=== PATIENT | male | born 2000 | race Caucasian/White ===

== ENCOUNTER 2022-10-19 01:15 | Inpatient (IN) | payer BC, SELFPAY ==
[2022-10-19 01:17] VITALS: BP 137/83; PULSE 85; RESP 18; TEMP 36.8; O2SAT 96; BMI 29.3
[2022-10-19 01:36] LABS: Appearance Urine Clear; Color Urine Yellow; Glucose Urine UA Negative (Negative); Leukocyte Esterase Urine Negative (Negative); Nitrite Urine Negative (Negative); Urine Blood Negative (Negative); Urine Ketones Trace mg/dL (Negative); Urine Protein Trace mg/dL (Neg-Trace)
[2022-10-19 01:41] LABS: MANUAL DIFF FLAG NO
[2022-10-19 01:42] LABS: Basophils Percent Auto 0.4 % (0-2); Eosinophils Absolute Auto 0.2 X10*3/uL (0.0-0.4); Eosinophils Percent Auto 1.9 % (0-4); Hematocrit 43.6 % (42.0-52.0); Hemoglobin 14.5 g/dl (14.0-18.0); Imm Gran Abs Auto 0.04 X10*3/uL (0.00-0.03); Imm Gran Pct Auto 0.5 % (0.0-0.4); Lymphocytes Absolute Auto 1.3 X10*3/uL (1.2-4.9); Lymphocytes Percent Auto 15.8 % (20-40); Mean Corpuscular HGB Conc 33.3 g/dl (31.0-36.0); Mean Corpuscular Volume 93.2 fL (80.0-98.0); Mean Platelet Volume 9.5 fL (9.4-12.4); Monocytes Absolute Auto 0.6 X10*3/uL (0.1-1.2); Monocytes Percent Auto 7.7 % (2-11); Neutrophils Absolute Auto 6.1 x10*3/uL (2.0-8.3); Neutrophils Percent Auto 73.7 % (45-73); Platelet Count 250 X10*3/uL (160-400); Red Blood Count 4.68 X10*6/uL (4.60-5.80); Red Cell Distribution Width 12.7 % (11.0-16.0); White Blood Count 8.3 X10*3/uL (4.8-10.8)
[2022-10-19 01:46] LABS: Amphetamine Screen Urine Not Detected (Not Detect); Barbiturates, Urine Not Detected (Not Detect); Benzodiazepines Screen Urine Not Detected (Not Detect); Cannabinoid Screen Urine POSITIVE (Not Detect); Cocaine Screen Urine Not Detected (Not Detect); Fentanyl, urine Not Detected (Not Detect); Opiate Screen Urine Not Detected (Not Detect); Phencyclidine Screen Urine Not Detected (Not Detect)
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
[2022-10-19 01:57] LABS: Alanine Aminotransferase 37 U/L (0-40); Albumin Level 4.5 g/dL (3.5-5.0); Alkaline Phosphatase 70 U/L (39-117); Anion Gap 16 (12-20); Aspartate Amino Transferase 19 U/L (5-37); Bilirubin Total 0.5 mg/dL (0.0-1.0); Blood Urea Nitrogen 12 mg/dL (9-16); Calcium 9.9 mg/dL (8.4-10.2); Carbon Dioxide 20 mmol/L (22-29); Chloride 109 mmol/L (96-108); Creatinine Clr Calc Pharmacy 159.5; Estimated Glomerular Filt Rate > 60; Ethanol < 10 mg/dL; Glucose Random 105 mg/dL (60-115); Sodium 141 mmol/L (135-145); Total Protein 7.4 g/dL (6.5-8.0)
[2022-10-19 02:57] LABS: Acetaminophen LAB < 17 mcg/mL (<30); Salicylate < 5.0 mg/dL (15-30)
--- NOTE | 2022-10-19 06:19 | PC.NURSE ---
Patient slept through the night, no distress observed/reported, pending care team evaluation, behavior non concerning, med rec completed/approved, VSS, labs completed and resulted, will continue to monitor.
[2022-10-19 06:21] VITALS: RESP 14
[2022-10-19 09:46] LABS: COVID-19 Test Negative (Negative); IDNOW Serial# BCCEAD1C
[2022-10-19] MEDS: Escitalopram Oxalate 20 MG TABLET PO (10:42)
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
[2022-10-19 14:25] VITALS: BP 148/81; PULSE 72; RESP 18; TEMP 36.7; O2SAT 97
--- NOTE | 2022-10-19 14:32 | MHC.CARE ---
Report filed with Elder Protective Services
[2022-10-19 14:42] VITALS: BMI 29.2
--- NOTE | 2022-10-19 19:46 | PC.ADMIT ---
Lc was admitted to [facility] on 10/19/22 on a CV from [facility]. He denies current suicidal and homicidal thoughts and intent. He denies auditory and visual hallucinations. Safety check was completed by this RN and MHC. He states he had a difficult breakup recently and also reports having difficulty with school and finding a job. He reports that he had a plan to commit suicide by firearm, but his grandma found out and called EMS. He states that he can go to staff for help if feeling unsafe. Will continue to monitor for safety and changes in behavior.
[2022-10-19 20:10] VITALS: BP 123/80; PULSE 65; RESP 17; TEMP 36.6; O2SAT 100
[2022-10-20 08:13] LABS: Alanine Aminotransferase 38 U/L (0-40); Albumin Level 4.5 g/dL (3.5-5.0); Alkaline Phosphatase 71 U/L (39-117); Anion Gap 13 (12-20); Aspartate Amino Transferase 21 U/L (5-37); Bilirubin Total 0.7 mg/dL (0.0-1.0); Blood Urea Nitrogen 12 mg/dL (9-16); Calcium 9.7 mg/dL (8.4-10.2); Carbon Dioxide 26 mmol/L (22-29); Chloride 108 mmol/L (96-108); Cholesterol 162 mg/dL; Estimated Glomerular Filt Rate > 60; Glucose Fasting 97 mg/dL (60-99); HDL Cholesterol 62 mg/dL; LDL Cholesterol Calculated 85 mg/dl; Potassium 5.3 mmol/L (3.3-5.1); Sodium 142 mmol/L (135-145); Total Protein 7.5 g/dL (6.5-8.0); Triglycerides 75 mg/dL
[2022-10-20] MEDS: Escitalopram Oxalate 20 MG TABLET PO (09:04)
[2022-10-20] MEDS: hydrOXYzine HCL 50 MG TABLET PO (09:06)
[2022-10-20 09:09] VITALS: BP 139/72; PULSE 66; RESP 16; TEMP 36.6; O2SAT 96
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
[2022-10-20 19:50] VITALS: BP 140/74; PULSE 78; RESP 17; TEMP 36.8; O2SAT 97
[2022-10-21] MEDS: LORazepam 1 MG TABLET PO ×3 (04:42→20:55)
[2022-10-21 06:00] VITALS: BP 131/72; PULSE 86; RESP 16; TEMP 36.7; O2SAT 96
[2022-10-21] MEDS: Escitalopram Oxalate 20 MG TABLET PO (09:23)
--- NOTE | 2022-10-21 10:04 | HO.PSYCHPN ---
Subjective Subjective Date of Service: 10/21/22 Reason For Visit: SI Subjective Notes: Conditional Voluntary Healthcare Proxy: No Guardianship: No Medical Problems Affecting Mental Status: No Interim History: PATIENT SEEN ON 10/21/2022 CASE REVIEWED IN TREATMENT TEAM AND WITH NURSING STAFF. The paper seem to understand appreciate cognitive behavioral perspective and the ability to change thinking patterns and his tendency to contest 5. He did seem reassured that there was some hope that in addition to medication there were ways to retrain his mind. His dealing with the repercussions of taking a gun from his mother's house in order to kill himself and has decided he feels he needs to cut off contact because of the toxicity of their relationship and feels he would be better off living with his grandmother. He also has support from an older sister. The patient remains depressed and anxious denies active SI he is open to medication changes lorazepam p.r.n. had been helpful Medication Compliance: Yes Side effects from medications: Yes (Sweating with Lexapro) Mental Status Exam Mental Status Exam Patient Appearance: Well Grooomed Patient Orientation: Person, Place, Time and Situation Level of Consciousness: Awake and Appropriate Mood Description: Depressed and Blunted Affect Description: Appropriate and Constricted Patient Cognition Impaired: No Ability to Follow Directions: Good Speech Pattern: Clear Memory Description: Intact Hallucinations: None Delusions: Not Present Thought Process: Intact and Goal Oriented Thought Content: positive for Goal Oriented, positive for Preoccupation, positive for Suicidal Ideation (Denies active SI) and negative for Homicidal Ideation Depressive Symptoms: Increased Anxiety, Increased Irritability, Hopelessness, Increased Fatigue, Thoughts of /Suicide and Loss of Energy Judgement: Fair Judgement and Insight: Improving judgment and impulse control Diagnostics Vital Signs (24Hr): Vital Signs - 24 hr 10/20/22 19:50 10/21/22 06:00 Temperature 98.3 F 98.1 F Pulse Rate 78 86 Respiratory Rate 17 16 Blood Pressure 140/74 H 131/72 Pulse Oximetry 97 96 Oxygen Delivery Method Room Air Room Air BMI result Body Mass Index 29.2 Labs 10/19/22 01:36 10/20/22 07:11 Labs: Laboratory Results - last 48 hr 10/20/22 07:11 Sodium 142 Potassium 5.3 H D Chloride 108 Carbon Dioxide 26 Anion Gap 13 BUN 12 Creatinine 0.99 Estim Creat Clear Calc 140.0 Estimated GFR > 60 Fasting Glucose 97 Calcium 9.7 Total Bilirubin 0.7 AST 21 ALT 38 Alkaline Phosphatase 71 Total Protein 7.5 Albumin 4.5 Triglycerides 75 Cholesterol 162 LDL Cholesterol, Calc 85 HDL Cholesterol 62 Medications Medications Current Medications Acetaminophen (Acetaminophen 325 Mg Tablet) 650 mg PO Q6H PRN PRN Reason: Headache/Pain Mild Scale (1-3) Al Hydroxide/Mg Hydroxide (Magnesium Hydrox/Alum Hydrox 30 Ml Oral.Susp) 30 ml PO Q6H PRN PRN Reason: Heartburn/Nausea Escitalopram Oxalate (Escitalopram Oxalate 20 Mg Tablet) 20 mg PO DAILY TWIN Last Admin: 10/21/22 09:23 Dose: 20 mg Hydroxyzine HCl (Hydroxyzine Hcl 50 Mg Tablet) 50 mg PO Q4H PRN PRN Reason: anxiety Last Admin: 10/20/22 09:06 Dose: 50 mg Lorazepam (Lorazepam 1 Mg Tablet) 1 mg PO Q6H PRN PRN Reason: Anxiety Last Admin: 10/21/22 04:42 Dose: 1 mg Magnesium Hydroxide (Milk Of Magnesia 30 Ml Oral.Susp) 30 ml PO DAILY PRN PRN Reason: Constipation Trazodone HCl (Trazodone Hcl 50 Mg Tablet) 50 mg PO BEDTIME MRX1 PRN PRN Reason: Insomnia Allergies Allergies Allergy/AdvReac Type Severity Reaction Status Date / Time peanut AdvReac Swelling Verified 10/19/22 01:28 tree nut AdvReac Rash Verified 10/19/22 01:28 Assessment & Plan Assessment & Plan (1) Major depressive disorder, severe: Status: Acute Code(s): F32.2 - Major depressive disorder, single episode, severe without psychotic features (2) Other mixed anxiety disorders: Status: Acute Code(s): F41.3 - Other mixed anxiety disorders Plan The patient is a 22-year-old male with multiple stressors and losses of the past few years with a long history of anxiety and depressive episodes receiving treatment over the past few months. Patient denies a history of manic symptoms the patient's mood is severely depressed constricted hopeless helpless with catastrophic thinking. Given education regarding medication and CBT would most likely benefit from partial hospital step-down. Would benefit from collateral information from family patient appears to have not have followed with outpatient providers after discharge from [facility] patient might benefit from augmentation with Wellbutrin with consideration of Abilify augmentation versus mirtazapine. Given severity of depression and suicidal impulsivity consideration could also be given to the use of lithium and possibly even ECT based on response. Monitor for safety 10/21/2022 Patient seen on 10/21/2022 case reviewed with nursing staff. Patient looking to practice cognitive behavioral techniques unsure if partial hospital would be helpful he did try remote PHP through the [facility] and this was not helpful to him unsure how he responds in groups. Wellbutrin added 150 mg would most likely benefit from Seroquel 25 mg at bedtime and may be helpful as a p.r.n. for agitated depression. Patient certainly has had high risk impulsive behavior monitor response to the addition of Wellbutrin consider addition of Abilify her Seroquel does have Seroquel p.r.n. Patient educated on: diagnosis, medication risk/benefits and therapeutic strategies Reason for continued inpatient stay Substantial Risk for: harm to self and stable for discharge Time Spent With Patient Time: Total time managing care of this patient today __30__ minutes.
[2022-10-21 21:00] VITALS: BP 135/79; PULSE 80; RESP 16; TEMP 36.8; O2SAT 96
--- NOTE | 2022-10-22 09:54 | HO.PSYCHPN ---
Subjective Subjective Date of Service: 10/22/22 Reason For Visit: SI Subjective Notes: Conditional Voluntary Interim History: Reviewed in team and Dr. Pelletier. Pt reports feeling good today. Patient reports he has been talking with his friends and family which have contributed to him doing better. He reports going to groups has been helpful. Pt reports suicidal ideation yesterday, denies at this time. Pt stated he is looking forward to returning to work and seeing his friends. Would like referral for outpatient psychiatrist, therapist and attending PHP, social sciences research scientist notified. Medication Compliance: Yes Side effects from medications: No Attending Groups: Yes Review of Systems Constitutional: Reports as per HPI Eyes: Reports as per HPI Reports as per HPI Cardiovascular: Reports as per HPI Respiratory: Reports as per HPI Gastrointestinal: Reports as per HPI Genitourinary: Reports as per HPI Musculoskeletal: Reports as per HPI Skin/Breast: Reports as per HPI Reports as per HPI Psychiatric: Reports as per HPI Endocrine: Reports as per HPI Hematologic/Lymphatic: Reports as per HPI Allergic/Immunologic: Reports as per HPI Mental Status Exam Mental Status Exam Narrative: Pt is alert and oriented; behavior is cooperative, friendly and calm; patient is not in distress; dressed in casual attire; mood is described as good ; eye contact appropriate; Speech is normal rate, volume and prosody and not pressured; no psychomotor agitation/retardation present; thought process is organized and goal directed; Thought content is on tx; otherwise pertinent to relevant topics and without any delusional content, paranoid ideations or grandiosity; denies SI/HI. There is no evidence of perceptual disturbance. Patients insight and judgment are poor but improving. Diagnostics Vital Signs (24Hr): Vital Signs - 24 hr 10/21/22 21:00 Temperature 98.2 F Pulse Rate 80 Respiratory Rate 16 Blood Pressure 135/79 Pulse Oximetry 96 Oxygen Delivery Method Room Air BMI result Body Mass Index 29.2 Labs 10/19/22 01:36 10/20/22 07:11 Medications Medications Current Medications Acetaminophen (Acetaminophen 325 Mg Tablet) 650 mg PO Q6H PRN PRN Reason: Headache/Pain Mild Scale (1-3) Al Hydroxide/Mg Hydroxide (Magnesium Hydrox/Alum Hydrox 30 Ml Oral.Susp) 30 ml PO Q6H PRN PRN Reason: Heartburn/Nausea Bupropion HCl (Bupropion Hcl Xl 150 Mg Tab.Er.24h) 150 mg PO DAILY TWIN Escitalopram Oxalate (Escitalopram Oxalate 10 Mg Tablet) 10 mg PO DAILY TWIN Hydroxyzine HCl (Hydroxyzine Hcl 50 Mg Tablet) 50 mg PO Q4H PRN PRN Reason: anxiety Last Admin: 10/20/22 09:06 Dose: 50 mg Lorazepam (Lorazepam 1 Mg Tablet) 1 mg PO Q6H PRN PRN Reason: Anxiety Last Admin: 10/21/22 20:55 Dose: 1 mg Magnesium Hydroxide (Milk Of Magnesia 30 Ml Oral.Susp) 30 ml PO DAILY PRN PRN Reason: Constipation Pt Own (Nizoral 1 (Applic)) 1 applic TOPICAL DAILY TWIN Trazodone HCl (Trazodone Hcl 50 Mg Tablet) 50 mg PO BEDTIME MRX1 PRN PRN Reason: Insomnia Allergies Allergies Allergy/AdvReac Type Severity Reaction Status Date / Time peanut AdvReac Swelling Verified 10/19/22 01:28 tree nut AdvReac Rash Verified 10/19/22 01:28 Assessment & Plan Assessment & Plan (1) Major depressive disorder, severe: Status: Acute Code(s): F32.2 - Major depressive disorder, single episode, severe without psychotic features (2) Other mixed anxiety disorders: Status: Acute Code(s): F41.3 - Other mixed anxiety disorders Plan The patient is a 22-year-old male with multiple stressors and losses of the past few years with a long history of anxiety and depressive episodes receiving treatment over the past few months. Patient denies a history of manic symptoms the patient's mood is severely depressed constricted hopeless helpless with catastrophic thinking. Given education regarding medication and CBT would most likely benefit from partial hospital step-down. Would benefit from collateral information from family patient appears to have not have followed with outpatient providers after discharge from [facility] patient might benefit from augmentation with Wellbutrin with consideration of Abilify augmentation versus mirtazapine. Given severity of depression and suicidal impulsivity consideration could also be given to the use of lithium and possibly even ECT based on response. Monitor for safety 10/22: Pt reports feeling good today. Patient reports he has been talking with his friends and family which have contributed to him doing better. Attending groups. Reports suicidal ideation yesterday, denies at this time. Looking forward to returning to work. Would like referral for outpatient psychiatrist, therapist and attending PHP. Patient educated on: diagnosis, medication risk/benefits and therapeutic strategies Informed Consent: understands Reason for continued inpatient stay Substantial Risk for: med/psych decompensation Time Spent With Patient Time: Total time managing care of this patient today _30___ minutes.
[2022-10-22] MEDS: buPROPion HCl XL 150 MG TAB.ER.24H PO (10:28)
[2022-10-22] MEDS: Escitalopram Oxalate 10 MG TABLET PO (10:28)
[2022-10-22 10:31] VITALS: BP 145/78; PULSE 96; RESP 16; TEMP 36.8; O2SAT 95
[2022-10-22 22:03] VITALS: BP 136/83; PULSE 65; RESP 16; TEMP 36.4; O2SAT 96
[2022-10-22] MEDS: traZODone HCL 50 MG TABLET PO (22:06)
[2022-10-23] MEDS: LORazepam 1 MG TABLET PO (06:14)
[2022-10-23 08:20] VITALS: BP 154/80; PULSE 55; RESP 16; TEMP 36.2; O2SAT 96
[2022-10-23] MEDS: buPROPion HCl XL 150 MG TAB.ER.24H PO (08:48)
[2022-10-23] MEDS: Escitalopram Oxalate 10 MG TABLET PO (08:48)
--- NOTE | 2022-10-23 09:17 | HO.PSYCHPN ---
Subjective Subjective Date of Service: 10/23/22 Reason For Visit: SI Subjective Notes: 3 Day Interim History: Reviewed in team and Dr. Pelletier. Pt reports he woke up not feeling suicidal which made me emotional . Signed 3 day yesterday; states I want to do something with my life. My family is very supportive. I want to go to the [facility] program and therapy . Pt reports feeling good with the medications. Sleeping well. Medication Compliance: Yes Side effects from medications: No Attending Groups: Yes Review of Systems Constitutional: Reports as per HPI Eyes: Reports as per HPI Reports as per HPI Cardiovascular: Reports as per HPI Respiratory: Reports as per HPI Gastrointestinal: Reports as per HPI Genitourinary: Reports as per HPI Musculoskeletal: Reports as per HPI Skin/Breast: Reports as per HPI Reports as per HPI Psychiatric: Reports as per HPI Endocrine: Reports as per HPI Hematologic/Lymphatic: Reports as per HPI Allergic/Immunologic: Reports as per HPI Mental Status Exam Mental Status Exam Narrative: Pt is alert and oriented; behavior is cooperative, friendly and calm; patient is not in distress; dressed in casual attire; mood is described as good ; eye contact appropriate; Speech is normal rate, volume and prosody and not pressured; no psychomotor agitation/retardation present; thought process is organized and goal directed; Thought content is on tx; otherwise pertinent to relevant topics and without any delusional content, paranoid ideations or grandiosity; denies SI/HI. There is no evidence of perceptual disturbance. Patients insight and judgment are poor but improving. Diagnostics Vital Signs (24Hr): Vital Signs - 24 hr 10/22/22 10:31 10/22/22 22:03 Temperature 98.2 F 97.6 F Pulse Rate 96 65 Respiratory Rate 16 16 Blood Pressure 145/78 H 136/83 Pulse Oximetry 95 96 Oxygen Delivery Method Room Air Room Air BMI result Body Mass Index 29.2 Labs 10/19/22 01:36 10/20/22 07:11 Medications Medications Current Medications Acetaminophen (Acetaminophen 325 Mg Tablet) 650 mg PO Q6H PRN PRN Reason: Headache/Pain Mild Scale (1-3) Al Hydroxide/Mg Hydroxide (Magnesium Hydrox/Alum Hydrox 30 Ml Oral.Susp) 30 ml PO Q6H PRN PRN Reason: Heartburn/Nausea Bupropion HCl (Bupropion Hcl Xl 150 Mg Tab.Er.24h) 150 mg PO DAILY TWIN Last Admin: 10/23/22 08:48 Dose: 150 mg Escitalopram Oxalate (Escitalopram Oxalate 10 Mg Tablet) 10 mg PO DAILY [facility] Last Admin: 10/23/22 08:48 Dose: 10 mg Hydroxyzine HCl (Hydroxyzine Hcl 50 Mg Tablet) 50 mg PO Q4H PRN PRN Reason: anxiety Last Admin: 10/20/22 09:06 Dose: 50 mg Lorazepam (Lorazepam 1 Mg Tablet) 1 mg PO Q6H PRN PRN Reason: Anxiety Last Admin: 10/23/22 06:14 Dose: 1 mg Magnesium Hydroxide (Milk Of Magnesia 30 Ml Oral.Susp) 30 ml PO DAILY PRN PRN Reason: Constipation Pt Own (Nizoral 1 (Applic)) 1 applic TOPICAL DAILY [facility] Last Admin: 10/23/22 08:56 Dose: 1 applic Trazodone HCl (Trazodone Hcl 50 Mg Tablet) 50 mg PO BEDTIME MRX1 PRN PRN Reason: Insomnia Last Admin: 10/22/22 22:06 Dose: 50 mg Allergies Allergies Allergy/AdvReac Type Severity Reaction Status Date / Time peanut AdvReac Swelling Verified 10/19/22 01:28 tree nut AdvReac Rash Verified 10/19/22 01:28 Assessment & Plan Assessment & Plan (1) Major depressive disorder, severe: Status: Acute Code(s): F32.2 - Major depressive disorder, single episode, severe without psychotic features (2) Other mixed anxiety disorders: Status: Acute Code(s): F41.3 - Other mixed anxiety disorders Plan The patient is a 22-year-old male with multiple stressors and losses of the past few years with a long history of anxiety and depressive episodes receiving treatment over the past few months. Patient denies a history of manic symptoms the patient's mood is severely depressed constricted hopeless helpless with catastrophic thinking. Given education regarding medication and CBT would most likely benefit from partial hospital step-down. Would benefit from collateral information from family patient appears to have not have followed with outpatient providers after discharge from [facility] patient might benefit from augmentation with Wellbutrin with consideration of Abilify augmentation versus mirtazapine. Given severity of depression and suicidal impulsivity consideration could also be given to the use of lithium and possibly even ECT based on response. Monitor for safety 10/22: Pt reports feeling good today. Patient reports he has been talking with his friends and family which have contributed to him doing better. Attending groups. Reports suicidal ideation yesterday, denies at this time. Looking forward to returning to work. Would like referral for outpatient psychiatrist, therapist and attending PHP. 10/23: Pt reports he woke up not feeling suicidal which made me emotional . Signed 3 day yesterday; states I want to do something with my life. My family is very supportive. I want to go to the PHP program and therapy . Continue current tx plan. Patient educated on: diagnosis, medication risk/benefits and therapeutic strategies Informed Consent: understands Reason for continued inpatient stay Substantial Risk for: med/psych decompensation Time Spent With Patient Time: Total time managing care of this patient today _30___ minutes.
[2022-10-23 20:20] VITALS: BP 138/87; PULSE 66; RESP 18; TEMP 36.9; O2SAT 97
[2022-10-23] MEDS: LORazepam 0.5 MG TABLET PO (22:10)
[2022-10-24] MEDS: QUEtiapine Fumarate 25 MG TABLET PO (00:32)
[2022-10-24] MEDS: Acetaminophen 325 MG TABLET 650 MG PO (06:38)
[2022-10-24] MEDS: buPROPion HCl XL 150 MG TAB.ER.24H PO (08:16)
[2022-10-24] MEDS: Escitalopram Oxalate 10 MG TABLET PO (08:16)
[2022-10-24 08:19] VITALS: BP 151/91; PULSE 61; TEMP 36.6; O2SAT 95
--- NOTE | 2022-10-24 12:08 | PC.NURSE ---
Patient retracted 3 day notice.
--- NOTE | 2022-10-24 12:09 | PC.NURSE ---
PT retracted a 3-day
--- NOTE | 2022-10-24 13:38 | P.PNPSI_ITS ---
Subjective Subjective Date of Service: 10/24/22 Reason For Visit: SI Subjective Notes: Conditional Voluntary Healthcare Proxy: No Guardianship: No Interim History: Patient's case reviewed in treatment team case reviewed with nurse practitioner Maegan Solano Chart reviewed Pt retracted 3 day feeling somewhat better more motivated on lexapro Medication Compliance: Yes Mental Status Exam Mental Status Exam Narrative: Pt is alert and oriented; behavior is cooperative, friendly and calm; patient is not in distress; dressed in casual attire; mood is described as good ; eye contact appropriate; Speech is normal rate, volume and prosody and not pressured; no psychomotor agitation/retardation present; thought process is organized and goal directed; Thought content is on tx;dealing with severe family stress otherwise pertinent to relevant topics and without any delusional content, paranoid ideations or grandiosity; denies SI/HI. There is no evidence of perceptual disturbance. Patients insight and judgment are improving. Diagnostics Vital Signs (24Hr): Vital Signs - 24 hr 10/23/22 20:20 10/24/22 08:19 Temperature 98.4 F 98 F Pulse Rate 66 61 Respiratory Rate 18 Blood Pressure 138/87 151/91 H Pulse Oximetry 97 95 Oxygen Delivery Method Room Air Room Air BMI result Body Mass Index 29.2 Labs 10/19/22 01:36 10/20/22 07:11 Medications Medications Current Medications Acetaminophen (Acetaminophen 325 Mg Tablet) 650 mg PO Q6H PRN PRN Reason: Headache/Pain Mild Scale (1-3) Last Admin: 10/24/22 06:38 Dose: 650 mg Al Hydroxide/Mg Hydroxide (Magnesium Hydrox/Alum Hydrox 30 Ml Oral.Susp) 30 ml PO Q6H PRN PRN Reason: Heartburn/Nausea Bupropion HCl (Bupropion Hcl Xl 150 Mg Tab.Er.24h) 150 mg PO DAILY TWIN Last Admin: 10/24/22 08:16 Dose: 150 mg Escitalopram Oxalate (Escitalopram Oxalate 10 Mg Tablet) 10 mg PO DAILY TWIN Last Admin: 10/24/22 08:16 Dose: 10 mg Lorazepam (Lorazepam 0.5 Mg Tablet) 0.5 mg PO BID PRN PRN Reason: Anxiety Last Admin: 10/23/22 22:10 Dose: 0.5 mg Magnesium Hydroxide (Milk Of Magnesia 30 Ml Oral.Susp) 30 ml PO DAILY PRN PRN Reason: Constipation Pt Own (Nizoral 1 (Applic)) 1 applic TOPICAL DAILY TWIN Last Admin: 10/24/22 08:20 Dose: Not Given Quetiapine Fumarate (Quetiapine Fumarate 25 Mg Tablet) 25 mg PO BID PRN PRN Reason: anxiety/insomnia Last Admin: 10/24/22 00:32 Dose: 25 mg Allergies Allergies Allergy/AdvReac Type Severity Reaction Status Date / Time peanut AdvReac Swelling Verified 10/19/22 01:28 tree nut AdvReac Rash Verified 10/19/22 01:28 Assessment & Plan Assessment & Plan (1) Major depressive disorder, severe: Status: Acute Code(s): F32.2 - Major depressive disorder, single episode, severe without psychotic features (2) Other mixed anxiety disorders: Status: Acute Code(s): F41.3 - Other mixed anxiety disorders Plan The patient is a 22-year-old male with multiple stressors and losses of the past few years with a long history of anxiety and depressive episodes receiving treatment over the past few months. Patient denies a history of manic symptoms the patient's mood is severely depressed constricted hopeless helpless with catastrophic thinking. Given education regarding medication and CBT would most likely benefit from partial hospital step-down. Would benefit from collateral information from family patient appears to have not have followed with outpatient providers after discharge from [facility] patient might benefit from augmentation with Wellbutrin with consideration of Abilify augmentation versus mirtazapine. Given severity of depression and suicidal impulsivity consideration could also be given to the use of lithium and possibly even ECT based on response. Monitor for safety 10/22: Pt reports feeling good today. Patient reports he has been talking with his friends and family which have contributed to him doing better. Attending groups. Reports suicidal ideation yesterday, denies at this time. Looking forward to returning to work. Would like referral for outpatient psychiatrist, therapist and attending PHP. 10/23: Pt reports he woke up not feeling suicidal which made me emotional . Sign ed 3 day yesterday; states I want to do something with my life. My family is very supportive. I want to go to the PHP program and therapy . Continue current tx plan. 10/24/22 some improvement repoted cont wellbutrin under intense family pressure conflict Patient educated on: therapeutic strategies Informed Consent: understands Reason for continued inpatient stay Substantial Risk for: harm to self and rapid decompensation Time Spent With Patient Time: Total time managing care of this patient today ____ minutes.
[2022-10-24 20:00] VITALS: BP 144/82; PULSE 68; RESP 16; TEMP 36.9; O2SAT 97
[2022-10-25] MEDS: LORazepam 0.5 MG TABLET PO (01:08)
[2022-10-25] MEDS: QUEtiapine Fumarate 25 MG TABLET PO ×2 (01:08→16:16)
[2022-10-25] MEDS: Escitalopram Oxalate 10 MG TABLET PO (08:53)
[2022-10-25] MEDS: buPROPion HCl XL 150 MG TAB.ER.24H PO (08:53)
[2022-10-25 08:57] VITALS: BP 146/81; PULSE 85; RESP 16; TEMP 36.6; O2SAT 95
--- NOTE | 2022-10-25 16:10 | HO.PSYCHPN ---
Subjective Subjective Date of Service: 10/25/22 Reason For Visit: SI Subjective Notes: Conditional Voluntary Interim History: Patient's case reviewed with staff, treatment team and Maegan Solano nurse practitioner. Patient appears more future focused feels helped by combination of antidepressant and anti anxiety medication ended use Seroquel. He does appear to feel supported by his sisters and grandmother and is aware that there is an upcoming court hearing regarding his reported taking a hand gun from his family home Medication Compliance: Yes Side effects from medications: No Mental Status Exam Mental Status Exam Narrative: Pt is alert and oriented; behavior is cooperative, friendly and calm; patient is not in distress; dressed in casual attire; mood is described as good ; eye contact appropriate; Speech is normal rate, volume and prosody and not pressured; no psychomotor agitation/retardation present; thought process is organized and goal directed; Thought content is on tx;dealing with severe family stress otherwise pertinent to relevant topics and without any delusional content, paranoid ideations or grandiosity; denies SI/HI. He is feeling calmer hands more supported by his sisters and grandmother There is no evidence of perceptual disturbance. Patients insight and judgment are improving. Diagnostics Vital Signs (24Hr): Vital Signs - 24 hr 10/24/22 20:00 10/25/22 08:57 Temperature 98.4 F 97.9 F Pulse Rate 68 85 Respiratory Rate 16 16 Blood Pressure 144/82 H 146/81 H Pulse Oximetry 97 95 Oxygen Delivery Method Room Air Room Air BMI result Body Mass Index 29.2 Labs 10/19/22 01:36 10/20/22 07:11 Medications Medications Current Medications Acetaminophen (Acetaminophen 325 Mg Tablet) 650 mg PO Q6H PRN PRN Reason: Headache/Pain Mild Scale (1-3) Last Admin: 10/24/22 06:38 Dose: 650 mg Al Hydroxide/Mg Hydroxide (Magnesium Hydrox/Alum Hydrox 30 Ml Oral.Susp) 30 ml PO Q6H PRN PRN Reason: Heartburn/Nausea Bupropion HCl (Bupropion Hcl Xl 150 Mg Tab.Er.24h) 150 mg PO DAILY [facility] Last Admin: 10/25/22 08:53 Dose: 150 mg Escitalopram Oxalate (Escitalopram Oxalate 10 Mg Tablet) 10 mg PO DAILY [facility] Last Admin: 10/25/22 08:53 Dose: 10 mg Lorazepam (Lorazepam 0.5 Mg Tablet) 0.5 mg PO BID PRN PRN Reason: Anxiety Last Admin: 10/25/22 01:08 Dose: 0.5 mg Magnesium Hydroxide (Milk Of Magnesia 30 Ml Oral.Susp) 30 ml PO DAILY PRN PRN Reason: Constipation Pt Own (Nizoral 1 (Applic)) 1 applic TOPICAL DAILY [facility] Last Admin: 10/25/22 08:54 Dose: Not Given Quetiapine Fumarate (Quetiapine Fumarate 25 Mg Tablet) 25 mg PO BID PRN PRN Reason: anxiety/insomnia Last Admin: 10/25/22 01:08 Dose: 25 mg Allergies Allergies Allergy/AdvReac Type Severity Reaction Status Date / Time peanut AdvReac Swelling Verified 10/19/22 01:28 tree nut AdvReac Rash Verified 10/19/22 01:28 Assessment & Plan Assessment & Plan (1) Major depressive disorder, severe: Status: Acute Code(s): F32.2 - Major depressive disorder, single episode, severe without psychotic features (2) Other mixed anxiety disorders: Status: Acute Code(s): F41.3 - Other mixed anxiety disorders Plan The patient is a 22-year-old male with multiple stressors and losses of the past few years with a long history of anxiety and depressive episodes receiving treatment over the past few months. Patient denies a history of manic symptoms the patient's mood is severely depressed constricted hopeless helpless with catastrophic thinking. Given education regarding medication and CBT would most likely benefit from partial hospital step-down. Would benefit from collateral information from family patient appears to have not have followed with outpatient providers after discharge from [facility] patient might benefit from augmentation with Wellbutrin with consideration of Abilify augmentation versus mirtazapine. Given severity of depression and suicidal impulsivity consideration could also be given to the use of lithium and possibly even ECT based on response. Monitor for safety 10/22: Pt reports feeling good today. Patient reports he has been talking with his friends and family which have contributed to him doing better. Attending groups. Reports suicidal ideation yesterday, denies at this time. Looking forward to returning to work. Would like referral for outpatient psychiatrist, therapist and attending PHP. 10/23: Pt reports he woke up not feeling suicidal which made me emotional . Signed 3 day yesterday; states I want to do something with my life. My family is very supportive. I want to go to the PHP program and therapy . Continue current tx plan. 10/24/22 some improvement repoted cont wellbutrin under intense family pressure conflict 10/25/2022 Continue plan of care patient. Initially to have taken information regarding potential court hearing regarding his taking of gone out of the family home reportedly but seemed reassured after speaking with his family and understanding that he does have an insurance defense attorney and will hopefully not be facing charges. Patient more future oriented planning return to work and school at some point seems more hopeful Patient educated on: therapeutic strategies Informed Consent: understands Reason for continued inpatient stay Substantial Risk for: harm to self Time Spent With Patient Time: Total time managing care of this patient today ____ minutes.
[2022-10-25 18:00] VITALS: BP 142/78; PULSE 78; RESP 18; TEMP 36.6; O2SAT 96
[2022-10-26 08:00] VITALS: BP 144/85; PULSE 81; RESP 18; TEMP 36.6; O2SAT 98
--- NOTE | 2022-10-26 08:56 | P.PNPSI_ITS ---
Subjective Subjective Date of Service: 10/26/22 Reason For Visit: SI Subjective Notes: Conditional Voluntary Interim History: Reviewed in team and Dr. Gordon. Patient reports feeling okay for the most part today. He continues to have anxiety throughout the day but does not know the source of his anxiety. Patient states he has not thought of suicide since Saturday ; he is looking forward to attending [facility] and returning to work. Pt denies SI/HI/VH/AH at this time. Medication Compliance: Yes Side effects from medications: No Attending Groups: Yes Review of Systems Constitutional: Reports as per HPI Eyes: Reports as per HPI Reports as per HPI Cardiovascular: Reports as per HPI Respiratory: Reports as per HPI Gastrointestinal: Reports as per HPI Genitourinary: Reports as per HPI Musculoskeletal: Reports as per HPI Skin/Breast: Reports as per HPI Reports as per HPI Psychiatric: Reports as per HPI Endocrine: Reports as per HPI Hematologic/Lymphatic: Reports as per HPI Allergic/Immunologic: Reports as per HPI Mental Status Exam Mental Status Exam Narrative: Pt is alert and oriented; behavior is cooperative, friendly and calm; patient is not in distress; dressed in casual attire; mood is described as okay ; eye contact appropriate; Speech is normal rate, volume and prosody and not pressured; no psychomotor agitation/retardation present; thought process is organized and goal directed; Thought content is on tx; otherwise pertinent to relevant topics and without any delusional content, paranoid ideations or grandiosity; denies SI/HI. There is no evidence of perceptual disturbance.Patients insight and judgment are fair. Diagnostics Vital Signs (24Hr): Vital Signs - 24 hr 10/25/22 08:57 10/25/22 18:00 Temperature 97.9 F 97.9 F Pulse Rate 85 78 Respiratory Rate 16 18 Blood Pressure 146/81 H 142/78 H Pulse Oximetry 95 96 Oxygen Delivery Method Room Air Room Air BMI result Body Mass Index 29.2 Labs 10/19/22 01:36 10/20/22 07:11 Medications Medications Current Medications Acetaminophen (Acetaminophen 325 Mg Tablet) 650 mg PO Q6H PRN PRN Reason: Headache/Pain Mild Scale (1-3) Last Admin: 10/24/22 06:38 Dose: 650 mg Al Hydroxide/Mg Hydroxide (Magnesium Hydrox/Alum Hydrox 30 Ml Oral.Susp) 30 ml PO Q6H PRN PRN Reason: Heartburn/Nausea Bupropion HCl (Bupropion Hcl Xl 150 Mg Tab.Er.24h) 150 mg PO DAILY [facility] Last Admin: 10/25/22 08:53 Dose: 150 mg Escitalopram Oxalate (Escitalopram Oxalate 10 Mg Tablet) 10 mg PO DAILY [facility] Last Admin: 10/25/22 08:53 Dose: 10 mg Lorazepam (Lorazepam 0.5 Mg Tablet) 0.5 mg PO BID PRN PRN Reason: Anxiety Last Admin: 10/25/22 01:08 Dose: 0.5 mg Magnesium Hydroxide (Milk Of Magnesia 30 Ml Oral.Susp) 30 ml PO DAILY PRN PRN Reason: Constipation Pt Own (Nizoral 1 (Applic)) 1 applic TOPICAL DAILY [facility] Last Admin: 10/25/22 08:54 Dose: Not Given Quetiapine Fumarate (Quetiapine Fumarate 25 Mg Tablet) 25 mg PO BID PRN PRN Reason: anxiety/insomnia Last Admin: 10/25/22 16:16 Dose: 25 mg Allergies Allergies Allergy/AdvReac Type Severity Reaction Status Date / Time peanut AdvReac Swelling Verified 10/19/22 01:28 tree nut AdvReac Rash Verified 10/19/22 01:28 Assessment & Plan Assessment & Plan (1) Major depressive disorder, severe: Status: Acute Code(s): F32.2 - Major depressive disorder, single episode, severe without psychotic features (2) Other mixed anxiety disorders: Status: Acute Code(s): F41.3 - Other mixed anxiety disorders Plan The patient is a 22-year-old male with multiple stressors and losses of the past few years with a long history of anxiety and depressive episodes receiving treatment over the past few months. Patient denies a history of manic symptoms the patient's mood is severely depressed constricted hopeless helpless with catastrophic thinking. Given education regarding medication and CBT would most likely benefit from partial hospital step-down. Would benefit from collateral information from family patient appears to have not have followed with outpatient providers after discharge from [facility] patient might benefit from augmentation with Wellbutrin with consideration of Abilify augmentation versus mirtazapine. Given severity of depression and suicidal impulsivity consideration could also be given to the use of lithium and possibly even ECT based on response. Monitor for safety 10/22: Pt reports feeling good today. Patient reports he has been talking with his friends and family which have contributed to him doing better. Attending groups. Reports suicidal ideation yesterday, denies at this time. Looking forward to returning to work. Would like referral for outpatient psychiatrist, therapist and attending PHP. 10/23: Pt reports he woke up not feeling suicidal which made me emotional . Signed 3 day yesterday; states I want to do something with my life. My family is very supportive. I want to go to the PHP program and therapy . Continue current tx plan. 10/24/22 some improvement repoted cont wellbutrin under intense family pressure conflict 10/25/2022 Continue plan of care patient. Initially to have taken information regarding potential court hearing regarding his taking of gone out of the family home reportedly but seemed reassured after speaking with his family and understanding that he does have an assistant attorney general and will hopefully not be facing charges. Patient more future oriented planning return to work and school at some point seems more hopeful 10/26: Patient reports feeling okay for the most part today. He continues to have anxiety throughout the day but does not know the source of his anxiety. Patient states he has not thought of suicide since Saturday ; he is looking forward to attending PHP and returning to work. Pt denies SI/HI/VH/AH at this time. Continue current tx plan. Patient educated on: diagnosis, medication risk/benefits and therapeutic strategies Informed Consent: understands Reason for continued inpatient stay Substantial Risk for: med/psych decompensation Time Spent With Patient Time: Total time managing care of this patient today _30___ minutes.
[2022-10-26] MEDS: Escitalopram Oxalate 10 MG TABLET PO (09:00)
[2022-10-26] MEDS: buPROPion HCl XL 150 MG TAB.ER.24H PO (09:01)
[2022-10-26] MEDS: LORazepam 0.5 MG TABLET PO (10:37)
[2022-10-26 21:55] VITALS: BP 148/84; PULSE 70; RESP 18; TEMP 36.4; O2SAT 95
[2022-10-26] MEDS: QUEtiapine Fumarate 25 MG TABLET PO (22:01)
[2022-10-27] MEDS: buPROPion HCl XL 150 MG TAB.ER.24H PO (09:42)
[2022-10-27] MEDS: Escitalopram Oxalate 10 MG TABLET PO (09:42)
[2022-10-27 09:43] VITALS: BP 153/80; PULSE 82; RESP 16; TEMP 36.7; O2SAT 97
--- NOTE | 2022-10-27 12:38 | P.PNPSI_ITS ---
Subjective Subjective Date of Service: 10/27/22 Reason For Visit: SI Interim History: calm, cooperative. meds reviewed, happy with regimen. eating, sleeping, getting along OK. planning for [place] saturday. per staff, eating and sleeping. PRN seroquel for sleep. Mental Status Exam Mental Status Exam Narrative: Pt is alert and oriented; behavior is cooperative, friendly and calm; patient is not in distress; dressed in casual attire; mood is described as okay ; eye contact appropriate; Speech is normal rate, volume and prosody and not pressured; no psychomotor agitation/retardation present; thought process is organized and goal directed; Thought content is on tx; otherwise pertinent to relevant topics and without any delusional content, paranoid ideations or grandiosity; denies SI/HI. There is no evidence of perceptual disturbance.Patients insight and judgment are fair. Diagnostics Vital Signs (24Hr): Vital Signs - 24 hr 10/26/22 21:55 10/27/22 09:43 Temperature 97.6 F 98.0 F Pulse Rate 70 82 Respiratory Rate 18 16 Blood Pressure 148/84 H 153/80 H Pulse Oximetry 95 97 Oxygen Delivery Method Room Air Room Air BMI result Body Mass Index 29.2 Labs 10/19/22 01:36 10/20/22 07:11 Medications Medications Current Medications Acetaminophen (Acetaminophen 325 Mg Tablet) 650 mg PO Q6H PRN PRN Reason: Headache/Pain Mild Scale (1-3) Last Admin: 10/24/22 06:38 Dose: 650 mg Al Hydroxide/Mg Hydroxide (Magnesium Hydrox/Alum Hydrox 30 Ml Oral.Susp) 30 ml PO Q6H PRN PRN Reason: Heartburn/Nausea Bupropion HCl (Bupropion Hcl Xl 150 Mg Tab.Er.24h) 150 mg PO DAILY [facility] Last Admin: 10/27/22 09:42 Dose: 150 mg Escitalopram Oxalate (Escitalopram Oxalate 10 Mg Tablet) 10 mg PO DAILY [facility] Last Admin: 10/27/22 09:42 Dose: 10 mg Lorazepam (Lorazepam 0.5 Mg Tablet) 0.5 mg PO BID PRN PRN Reason: Anxiety Last Admin: 10/26/22 10:37 Dose: 0.5 mg Magnesium Hydroxide (Milk Of Magnesia 30 Ml Oral.Susp) 30 ml PO DAILY PRN PRN Reason: Constipation Pt Own (Nizoral 1 (Applic)) 1 applic TOPICAL DAILY [facility] Last Admin: 10/27/22 09:43 Dose: Not Given Quetiapine Fumarate (Quetiapine Fumarate 25 Mg Tablet) 25 mg PO BID PRN PRN Reason: anxiety/insomnia Last Admin: 10/26/22 22:01 Dose: 25 mg Allergies Allergies Allergy/AdvReac Type Severity Reaction Status Date / Time peanut AdvReac Swelling Verified 10/19/22 01:28 tree nut AdvReac Rash Verified 10/19/22 01:28 Assessment & Plan Assessment & Plan (1) Major depressive disorder, severe: Status: Acute Code(s): F32.2 - Major depressive disorder, single episode, severe without psychotic features (2) Other mixed anxiety disorders: Status: Acute Code(s): F41.3 - Other mixed anxiety disorders Plan The patient is a 22-year-old male with multiple stressors and losses of the past few years with a long history of anxiety and depressive episodes receiving treatment over the past few months. Patient denies a history of manic symptoms the patient's mood is severely depressed constricted hopeless helpless with catastrophic thinking. Given education regarding medication and CBT would most likely benefit from partial hospital step-down. Would benefit from collateral information from family patient appears to have not have followed with outpatient providers after discharge from [facility] patient might benefit from augmentation with Wellbutrin with consideration of Abilify augmentation versus mirtazapine. Given severity of depression and suicidal impulsivity consideration could also be given to the use of lithium and possibly even ECT based on response. Monitor for safety 10/22: Pt reports feeling good today. Patient reports he has been talking with his friends and family which have contributed to him doing better. Attending [facility]. Reports suicidal ideation yesterday, denies at this time. Looking forward to returning to work. Would like referral for outpatient psychiatrist, therapist and attending PHP. 10/23: Pt reports he woke up not feeling suicidal which made me emotional . Signed 3 day yesterday; states I want to do something with my life. My family is very supportive. I want to go to the PHP program and therapy . Continue current tx plan. 10/24/22 some improvement repoted cont wellbutrin under intense family pressure conflict 10/25/2022 Continue plan of care patient. Initially to have taken information regarding potential court hearing regarding his taking of gone out of the family home reportedly but seemed reassured after speaking with his family and understanding that he does have an corporate associate attorney and will hopefully not be facing charges. Patient more future oriented planning return to work and school at some point seems more hopeful 10/26: Patient reports feeling okay for the most part today. He continues to have anxiety throughout the day but does not know the source of his anxiety. Patient states he has not thought of suicide since Saturday ; he is looking forward to attending PHP and returning to work. Pt denies SI/HI/VH/AH at this time. Continue current tx plan. 10/27: stable presentation, continue current mgmt. planning for DC next saturday. Reason for continued inpatient stay Substantial Risk for: harm to self and rapid decompensation Time Spent With Patient Time: Total time managing care of this patient today ____ minutes.
[2022-10-27 22:53] VITALS: BP 164/83; PULSE 78; RESP 18; TEMP 36.8; O2SAT 95
[2022-10-28] MEDS: QUEtiapine Fumarate 25 MG TABLET PO ×2 (01:58→22:27)
[2022-10-28 08:54] VITALS: BP 141/86; PULSE 96; RESP 16; TEMP 36.3; O2SAT 96
[2022-10-28] MEDS: Escitalopram Oxalate 10 MG TABLET PO (09:38)
[2022-10-28] MEDS: buPROPion HCl XL 150 MG TAB.ER.24H PO (09:38)
--- NOTE | 2022-10-28 13:03 | P.PNPSI_ITS ---
Subjective Subjective Date of Service: 10/28/22 Reason For Visit: SI Interim History: visitor today. doing well, no questions or complaints. looking forward to [place] saturday. states he is a night owl. per staff, pleasant, mood better. to bed at 1230, got seroquel at 0200. up at 0830. Mental Status Exam Mental Status Exam Narrative: Pt is alert and oriented; behavior is cooperative, friendly and calm; patient is not in distress; dressed in casual attire; mood is described as okay ; eye contact appropriate; Speech is normal rate, volume and prosody and not pressured; no psychomotor agitation/retardation present; thought process is organized and goal directed; Thought content is on tx; otherwise pertinent to relevant topics and without any delusional content, paranoid ideations or grandiosity; denies SI/HI. There is no evidence of perceptual disturbance.Patients insight and judgment are fair. Diagnostics Vital Signs (24Hr): Vital Signs - 24 hr 10/27/22 22:53 10/28/22 08:54 Temperature 98.2 F 97.3 F Pulse Rate 78 96 Respiratory Rate 18 16 Blood Pressure 164/83 H 141/86 H Pulse Oximetry 95 96 Oxygen Delivery Method Room Air Room Air BMI result Body Mass Index 29.2 Labs 10/19/22 01:36 10/20/22 07:11 Medications Medications Current Medications Acetaminophen (Acetaminophen 325 Mg Tablet) 650 mg PO Q6H PRN PRN Reason: Headache/Pain Mild Scale (1-3) Last Admin: 10/24/22 06:38 Dose: 650 mg Al Hydroxide/Mg Hydroxide (Magnesium Hydrox/Alum Hydrox 30 Ml Oral.Susp) 30 ml PO Q6H PRN PRN Reason: Heartburn/Nausea Bupropion HCl (Bupropion Hcl Xl 150 Mg Tab.Er.24h) 150 mg PO DAILY [facility] Last Admin: 10/28/22 09:38 Dose: 150 mg Escitalopram Oxalate (Escitalopram Oxalate 10 Mg Tablet) 10 mg PO DAILY [facility] Last Admin: 10/28/22 09:38 Dose: 10 mg Lorazepam (Lorazepam 0.5 Mg Tablet) 0.5 mg PO BID PRN PRN Reason: Anxiety Last Admin: 10/26/22 10:37 Dose: 0.5 mg Magnesium Hydroxide (Milk Of Magnesia 30 Ml Oral.Susp) 30 ml PO DAILY PRN PRN Reason: Constipation Pt Own (Nizoral 1 (Applic)) 1 applic TOPICAL DAILY [facility] Last Admin: 10/28/22 09:38 Dose: Not Given Quetiapine Fumarate (Quetiapine Fumarate 25 Mg Tablet) 25 mg PO BID PRN PRN Reason: anxiety/insomnia Last Admin: 10/28/22 01:58 Dose: 25 mg Allergies Allergies Allergy/AdvReac Type Severity Reaction Status Date / Time peanut AdvReac Swelling Verified 10/19/22 01:28 tree nut AdvReac Rash Verified 10/19/22 01:28 Assessment & Plan Assessment & Plan (1) Major depressive disorder, severe: Status: Acute Code(s): F32.2 - Major depressive disorder, single episode, severe without psychotic features (2) Other mixed anxiety disorders: Status: Acute Code(s): F41.3 - Other mixed anxiety disorders Plan The patient is a 22-year-old male with multiple stressors and losses of the past few years with a long history of anxiety and depressive episodes receiving treatment over the past few months. Patient denies a history of manic symptoms the patient's mood is severely depressed constricted hopeless helpless with catastrophic thinking. Given education regarding medication and CBT would most likely benefit from partial hospital step-down. Would benefit from collateral information from family patient appears to have not have followed with outpatient providers after discharge from [facility] patient might benefit from augmentation with Wellbutrin with consideration of Abilify augmentation versus mirtazapine. Given severity of depression and suicidal impulsivity consideration could also be given to the use of lithium and possibly even ECT based on response. Monitor for safety 10/22: Pt reports feeling good today. Patient reports he has been talking with his friends and family which have contributed to him doing better. Attending groups. Reports suicidal ideation yesterday, denies at this time. Looking for roy to returning to work. Would like referral for outpatient psychiatrist, therapist and attending PHP. 10/23: Pt reports he woke up not feeling suicidal which made me emotional . Signed 3 day yesterday; states I want to do something with my life. My family is very supportive. I want to go to the PHP program and therapy . Continue current tx plan. 10/24/22 some improvement repoted cont wellbutrin under intense family pressure conflict 10/25/2022 Continue plan of care patient. Initially to have taken information regarding potential court hearing regarding his taking of gone out of the family home reportedly but seemed reassured after speaking with his family and understanding that he does have an civil litigation attorney and will hopefully not be facing charges. Patient more future oriented planning return to work and school at some point seems more hopeful 10/26: Patient reports feeling okay for the most part today. He continues to have anxiety throughout the day but does not know the source of his anxiety. Patient states he has not thought of suicide since Saturday ; he is looking forward to attending PHP and returning to work. Pt denies SI/HI/VH/AH at this time. Continue current tx plan. 10/27: stable presentation, continue current mgmt. planning for DC next saturday. 10/28: stable presentation, continue current mgmt. planning for DC next saturday. Reason for continued inpatient stay Substantial Risk for: rapid decompensation Time Spent With Patient Time: Total time managing care of this patient today ____ minutes.
[2022-10-28 20:10] VITALS: BP 157/89; PULSE 70; RESP 16; O2SAT 96
[2022-10-29] MEDS: QUEtiapine Fumarate 25 MG TABLET PO ×2 (04:13→23:34)
[2022-10-29] MEDS: Escitalopram Oxalate 10 MG TABLET PO (08:59)
[2022-10-29] MEDS: buPROPion HCl XL 150 MG TAB.ER.24H PO (08:59)
[2022-10-29 09:12] VITALS: BP 167/98; PULSE 62; RESP 16; TEMP 36.6; O2SAT 98
--- NOTE | 2022-10-29 09:34 | HO.PSYCHPN ---
Subjective Subjective Date of Service: 10/29/22 Reason For Visit: SI Subjective Notes: Conditional Voluntary Interim History: Reviewed in team and Dr. Gordon. Patient reports feeling good today. Pt reports feeling much better than when I first came in . Patient stated, I'm excited to leave and start my life and accomplish my goals . Patient looking forward to [facility]. Pt denies SI/HI/VH/AH at this time. Medication Compliance: Yes Side effects from medications: No Attending Groups: Yes Review of Systems Constitutional: Reports as per HPI Eyes: Reports as per HPI Reports as per HPI Cardiovascular: Reports as per HPI Respiratory: Reports as per HPI Gastrointestinal: Reports as per HPI Genitourinary: Reports as per HPI Musculoskeletal: Reports as per HPI Skin/Breast: Reports as per HPI Reports as per HPI Psychiatric: Reports as per HPI Endocrine: Reports as per HPI Hematologic/Lymphatic: Reports as per HPI Allergic/Immunologic: Reports as per HPI Mental Status Exam Mental Status Exam Narrative: Pt is alert and oriented; behavior is cooperative, friendly and calm; patient is not in distress; dressed in casual attire; mood is described as good ; eye contact appropriate; Speech is normal rate, volume and prosody and not pressured; no psychomotor agitation/retardation present; thought process is organized and goal directed; Thought content is on tx; otherwise pertinent to relevant topics and without any delusional content, paranoid ideations or grandiosity; denies SI/HI. There is no evidence of perceptual disturbance. Patients insight and judgment are fair. Diagnostics Vital Signs (24Hr): Vital Signs - 24 hr 10/28/22 20:10 10/29/22 09:12 Temperature 98 F Pulse Rate 70 62 Respiratory Rate 16 16 Blood Pressure 157/89 H 167/98 H Pulse Oximetry 96 98 Oxygen Delivery Method Room Air Room Air BMI result Body Mass Index 29.2 Labs 10/19/22 01:36 10/20/22 07:11 Medications Medications Current Medications Acetaminophen (Acetaminophen 325 Mg Tablet) 650 mg PO Q6H PRN PRN Reason: Headache/Pain Mild Scale (1-3) Last Admin: 10/24/22 06:38 Dose: 650 mg Al Hydroxide/Mg Hydroxide (Magnesium Hydrox/Alum Hydrox 30 Ml Oral.Susp) 30 ml PO Q6H PRN PRN Reason: Heartburn/Nausea Bupropion HCl (Bupropion Hcl Xl 150 Mg Tab.Er.24h) 150 mg PO DAILY [facility]WIN Last Admin: 10/29/22 08:59 Dose: 150 mg Escitalopram Oxalate (Escitalopram Oxalate 10 Mg Tablet) 10 mg PO DAILY [facility] Last Admin: 10/29/22 08:59 Dose: 10 mg Magnesium Hydroxide (Milk Of Magnesia 30 Ml Oral.Susp) 30 ml PO DAILY PRN PRN Reason: Constipation Pt Own (Nizoral 1 (Applic)) 1 applic TOPICAL DAILY [facility] Last Admin: 10/28/22 09:38 Dose: Not Given Quetiapine Fumarate (Quetiapine Fumarate 25 Mg Tablet) 25 mg PO BID PRN PRN Reason: anxiety/insomnia Last Admin: 10/29/22 04:13 Dose: 25 mg Allergies Allergies Allergy/AdvReac Type Severity Reaction Status Date / Time peanut AdvReac Swelling Verified 10/19/22 01:28 tree nut AdvReac Rash Verified 10/19/22 01:28 Assessment & Plan Assessment & Plan (1) Major depressive disorder, severe: Status: Acute Code(s): F32.2 - Major depressive disorder, single episode, severe without psychotic features (2) Other mixed anxiety disorders: Status: Acute Code(s): F41.3 - Other mixed anxiety disorders Plan The patient is a 22-year-old male with multiple stressors and losses of the past few years with a long history of anxiety and depressive episodes receiving treatment over the past few months. Patient denies a history of manic symptoms the patient's mood is severely depressed constricted hopeless helpless with catastrophic thinking. Given education regarding medication and CBT would most likely benefit from partial hospital step-down. Would benefit from collateral information from family patient appears to have not have followed with outpatient providers after discharge from [facility] patient might benefit from augmentation with Wellbutrin with consideration of Abilify augmentation versus mirtazapine. Given severity of depression and suicidal impulsivity consideration could also be given to the use of lithium and possibly even ECT based on response. Monitor for safety 10/22: Pt reports feeling good today. Patient reports he has been talking with his friends and family which have contributed to him doing better. Attending groups. Reports suicidal ideation yesterday, denies at this time. Looking forward to returning to work. Would like referral for outpatient psychiatrist, therapist and attending PHP. 10/23: Pt reports he woke up not feeling suicidal which made me emotional . Signed 3 day yesterday; states I want to do something with my life. My family is very supportive. I want to go to the PHP program and therapy . Continue current tx plan. 10/24/22 some improvement repoted cont moses under intense family pressure conflict 10/25/2022 Continue plan of care patient. Initially to have taken information regarding potential court hearing regarding his taking of gone out of the family home reportedly but seemed reassured after speaking with his family and understanding that he does have an research attorney and will hopefully not be facing charges. Patient more future oriented planning return to work and school at some point seems more hopeful 10/26: Patient reports feeling okay for the most part today. He continues to have anxiety throughout the day but does not know the source of his anxiety. Patient states he has not thought of suicide since Saturday ; he is looking forward to attending PHP and returning to work. Pt denies SI/HI/VH/AH at this time. Continue current tx plan. 10/27: stable presentation, continue current mgmt. planning for DC next saturday. 10/28: stable presentation, continue current mgmt. planning for DC next saturday. 10/29: Patient reports feeling good today. Pt reports feeling much better than when I first came in . Patient stated, I'm excited to leave and start my life and accomplish my goals . Patient looking forward to PHP. Pt denies SI/HI/VH/AH at this time. Family meeting tomorrow with grandmother and siblings. Pt will discharge tomorrow after family meeting. Patient educated on: diagnosis, medication risk/benefits and therapeutic strategies Informed Consent: understands Reason for continued inpatient stay Substantial Risk for: stable for discharge Time Spent With Patient Time: Total time managing care of this patient today _30___ minutes.
[2022-10-29 18:00] VITALS: BP 154/102; PULSE 74; TEMP 36.9; O2SAT 96
[2022-10-30 08:00] VITALS: BP 130/86; PULSE 83; RESP 18; TEMP 36.8; O2SAT 98
[2022-10-30] MEDS: Escitalopram Oxalate 10 MG TABLET PO (09:24)
[2022-10-30] MEDS: buPROPion HCl XL 150 MG TAB.ER.24H PO (09:25)
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
--- NOTE | 2022-10-30 15:13 | HO.PSYCHPN ---
Subjective Subjective Date of Service: 10/29/22 Reason For Visit: SI Subjective Notes: Conditional Voluntary Interim History: Reviewed in team and with Dr. Gordon. Patient reports overall feeling better. Future oriented, looking forward to starting my life and accomplishing goals . Plans on attending PHP and following up with outpatient providers. Family meeting tomorrow with grandmother and siblings. Patient will be discharged after family meeting. Denies SI/HI/VH/AH. Medication Compliance: Yes Side effects from medications: No Attending Groups: Yes Review of Systems Constitutional: Reports as per HPI Eyes: Reports as per HPI Reports as per HPI Cardiovascular: Reports as per HPI Respiratory: Reports as per HPI Gastrointestinal: Reports as per HPI Genitourinary: Reports as per HPI Musculoskeletal: Reports as per HPI Skin/Breast: Reports as per HPI Reports as per HPI Psychiatric: Reports as per HPI Endocrine: Reports as per HPI Hematologic/Lymphatic: Reports as per HPI Allergic/Immunologic: Reports as per HPI Mental Status Exam Mental Status Exam Narrative: Pt is alert and oriented; behavior is cooperative, friendly and calm; patient is not in distress; dressed in casual attire; mood is described as good ; eye contact appropriate; Speech is normal rate, volume and prosody and not pressured; no psychomotor agitation/retardation present; thought process is organized and goal directed; Thought content is on tx; otherwise pertinent to relevant topics and without any delusional content, paranoid ideations or grandiosity; denies SI/HI. There is no evidence of perceptual disturbance.Patients insight and judgment are fair. Diagnostics Vital Signs (24Hr): Vital Signs - 24 hr 10/29/22 18:00 10/30/22 08:00 Temperature 98.4 F 98.2 F Pulse Rate 74 83 Respiratory Rate 18 Blood Pressure 154/102 H 130/86 Pulse Oximetry 96 98 Oxygen Delivery Method Room Air Room Air BMI result Body Mass Index 29.2 Labs 10/19/22 01:36 10/20/22 07:11 Medications Allergies Allergies Allergy/AdvReac Type Severity Reaction Status Date / Time peanut AdvReac Swelling Verified 10/19/22 01:28 tree nut AdvReac Rash Verified 10/19/22 01:28 Assessment & Plan Assessment & Plan (1) Major depressive disorder, severe: Status: Acute Code(s): F32.2 - Major depressive disorder, single episode, severe without psychotic features (2) Other mixed anxiety disorders: Status: Acute Code(s): F41.3 - Other mixed anxiety disorders Plan The patient is a 22-year-old male with multiple stressors and losses of the past few years with a long history of anxiety and depressive episodes receiving treatment over the past few months. Patient denies a history of manic symptoms the patient's mood is severely depressed constricted hopeless helpless with catastrophic thinking. Given education regarding medication and CBT would most likely benefit from partial hospital step-down. Would benefit from collateral information from family patient appears to have not have followed with outpatient providers after discharge from [facility] patient might benefit from augmentation with Wellbutrin with consideration of Abilify augmentation versus mirtazapine. Given severity of depression and suicidal impulsivity consideration could also be given to the use of lithium and possibly even ECT based on response. Monitor for safety 10/22: Pt reports feeling good today. Patient reports he has been talking with his friends and family which have contributed to him doing better. Attending groups. Reports suicidal ideation yesterday, denies at this time. Looking forward to returning to work. Would like referral for outpatient psychiatrist, therapist and attending PHP. 10/23: Pt reports he woke up not feeling suicidal which made me emotional . Signed 3 day yesterday; states I want to do something with my life. My family is very supportive. I want to go to the PHP program and therapy . Continue current tx plan. 10/24/22 some improvement repoted cont wellbutrin under intense family pressure conflict 10/25/2022 Continue plan of care patient. Initially to have taken information regarding potential court hearing regarding his taking of gone out of the family home reportedly but seemed reassured after speaking with his family and understanding that he does have an commercial attorney and will hopefully not be facing charges. Patient more future oriented planning return to work and school at some point seems more hopeful 10/26: Patient reports feeling okay for the most part today. He continues to have anxiety throughout the day but does not know the source of his anxiety. Patient states he has not thought of suicide since Saturday ; he is looking forward to attending PHP and returning to work. Pt denies SI/HI/VH/AH at this time. Continue current tx plan. 10/27: stable presentation, continue current mgmt. planning for DC next saturday. 10/28: stable presentation, continue current mgmt. planning for DC next saturday. 10/29: Overall feeling better. Future oriented, looking forward to starting my life and accomplishing goals . Plans on attending PHP and following up with outpatient providers. Family meeting tomorrow with grandmother and siblings. Patient will be discharged after family meeting. Denies SI/HI/VH/AH. Patient educated on: diagnosis, medication risk/benefits and therapeutic strategies Informed Consent: understands Reason for continued inpatient stay Substantial Risk for: stable for discharge Time Spent With Patient Time: Total time managing care of this patient today _30___ minutes.
== END 2022-10-30 11:35 | disposition home or self-care (01) | DRG 751 ==
LOC: HO.ED 10:11 → HO.PADLT16 13:40
PROVIDERS: Emergency Medicine Emergency Medical Services; Admitting Provider Registered Nurse; Emergency Provider Internal Medicine; Responsible Provider Registered Nurse; Visit Provider Psychiatry & Neurology Psychiatry
DX: F32.2 Major depressive disorder, single episode, severe without psychotic features (principal); R45.851 Suicidal ideations; F41.3 Other mixed anxiety disorders; Z20.822 Contact with and (suspected) exposure to COVID-19; Z79.899 Other long term (current) drug therapy
CPT/HCPCS: 36415; 80053; 80061; 80143; 80179; 80307; 81003; 85025; 87635; 99285; S9485

== ENCOUNTER → 2022-10-19 13:22 | Outpatient (BNV) | payer BC, SELFPAY | PROVIDERS: Admitting Provider Registered Nurse; Emergency Provider Internal Medicine; Visit Provider Psychiatry & Neurology Psychiatry | DX: F32.2 Major depressive disorder, single episode, severe without psychotic features (principal); F41.3 Other mixed anxiety disorders | CPT/HCPCS: 90792; 99231; 99232 ==

== ENCOUNTER → 2022-10-19 13:22 | Outpatient (BNV) | payer BC, SELFPAY | PROVIDERS: Admitting Provider Registered Nurse; Emergency Provider Internal Medicine; Responsible Provider Registered Nurse; Visit Provider Registered Nurse | DX: F32.2 Major depressive disorder, single episode, severe without psychotic features (principal); F41.3 Other mixed anxiety disorders | CPT/HCPCS: 99231; 99238 ==

== ENCOUNTER → 2022-11-09 11:30 | Outpatient (BNV) | payer BC, SELFPAY | PROVIDERS: Visit Provider Psychiatry & Neurology Psychiatry | DX: F32.2 Major depressive disorder, single episode, severe without psychotic features (principal) | CPT/HCPCS: 90792; 99213 ==

== ENCOUNTER 2022-11-23 13:00 | Outpatient (RCR) | payer BC, SELFPAY ==
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
[2022-11-09 14:11] VITALS: PULSE 68; TEMP 37.4
[2022-11-09 14:15] VITALS: BP 128/72
--- NOTE | 2022-11-13 10:24 | HO.PHPPROGNO ---
Subjective Subjective Date of Service: 11/13/22 Reason For Visit: MDD Interim History: James is seen for follow-up of depression/anxiety. He has been in the program for his 1st week. He was started on Wellbutrin XL 2 weeks ago which actually has been helpful in combination with Lexapro 10 mg which was decreased from 20 mg however he has been having severe night sweats pre much from the beginning. Since this is an unusual side effect, and the usefulness of Wellbutrin I will try him on Wellbutrin SR in case the reaction may be related to some of the additives. If that does not prove to be helpful we discussed the possibility of switching him to Prozac. He does use Seroquel p.r.n. for sleep Medication Compliance: Yes Attending Groups: Yes Review of Systems Review of Systems Sweating, particularly night sweats Yes all other systems are reviewed and are negative Mental Status Exam Mental Status Exam Narrative: In today's visit he is alert, oriented and pleasant. Normal speech. Good eye contact. Appropriate affect. No signs of psychosis. No SI. No overt anxiety/depression. Cognitively is intact. Judgment is intact Assessment & Plan Assessment & Plan (1) Major depressive disorder, severe: Status: Acute Code(s): F32.2 - Major depressive disorder, single episode, severe without psychotic features Plan Continue Lexapro 10 mg, discontinue Wellbutrin XL for 1 night and if the sweating does not happen to try Wellbutrin SR. I will see him on Saturday Certification I certify that partial hospital treatment is medically necessary due to the symptoms and problems resulting from the patient's mental illness and the failure to treat the patient at the partial hospital level of care would likely result in the patient requiring inpatient psychiatric care which could not be prevented at a less intensive level of care. Total time managing care of this patient today ____ minutes. Discharge Plan Discharge Attending provider: Anthony Taylor Medications: New bupropion HCl [Wellbutrin SR] 150 mg tablet sustained-release 12 hr 150 mg PO DAILY Qty: 7 0RF No Action escitalopram oxalate 10 mg Tablet 10 mg PO DAILY 30 Days Qty: 30 0RF bupropion HCl 150 mg Tablet Extended Release 24 Hr 150 mg PO DAILY 30 Days Qty: 30 0RF quetiapine 25 mg Tablet 25 mg PO BID PRN (Reason: anxiety/insomnia) 30 Days Qty: 60 0RF
--- NOTE | 2022-11-15 16:36 | HO.PHP ---
Clients case was reviewed and opened today in treatment team.
--- NOTE | 2022-11-20 12:50 | HO.PHP ---
[facility] staff followed up with James after group three due to him stating he is still in search of a therapist and med provider. [facility] staff explored if he was able to reach out to [facility] and [facility] to see if they received the referral from [facility]. James disclosed that he has not at this time. [facility] staff explored if he would like for any assistance or other referrals. James mentioned at this time he is all set and will ask for further support if needed. [facility] staff was receptive.
--- NOTE | 2022-11-21 13:45 | HO.PHP ---
PHP staff met with James to help assist in calling [facility] to make sure they received the referral from [facility]. The individual at [facility] disclosed that they have no referrals made for this individual. [facility] staff and James were then transferred to place a referral for OP providers. PHP staff member left a message and is awaiting a phone call back. [facility] staff also explored if he is open to other referrals being placed, in which he was and signed a release for [facility].
--- NOTE | 2022-11-21 16:09 | HO.PHP ---
PHP staff member faxed over the referral for OP therapy and med provider services to [facility] for James. [facility] staff is awaiting on scheduled appointment days and times.
--- NOTE | 2022-11-22 16:54 | HO.PHP ---
[facility] staff contact [facility] and [facility] to place a referral for OP therapy and psychiatry. [facility] staff is awaiting a phone call back after leaving a .
--- NOTE | 2022-11-23 09:38 | P.PNPSP_ITS ---
Subjective Subjective Date of Service: 11/23/22 Reason For Visit: MDD Healthcare Proxy: No Guardianship: No Interim History: James is seen in follow-up/discharge today. The switch from Wellbutrin XL to SR has taking care of the excessive sweating. He also continues on Lexapro 10 mg. Overall he is doing much better. He found the program quite helpful and talked about specific areas of benefits and some new coping mechanisms and skills. He does have an appointment with the PCP on January 09 but has not yet started finding a therapist and a prescriber. I stressed the importance of needing to do so. A 1 month supply with a refill was sent in so he has hopefully enough time to find someone. Medication Compliance: Yes Side effects from medications: No Attending Groups: Yes Review of Systems Review of Systems Yes all other systems are reviewed and are negative Assessment & Plan Assessment & Plan (1) Major depressive disorder, severe: Status: Acute Code(s): F32.2 - Major depressive disorder, single episode, severe without psychotic features Plan Continue Wellbutrin SR and Lexapro. Proceed with discharge today Patient educated on: medication risk/benefits Certification I certify that partial hospital treatment is medically necessary due to the symptoms and problems resulting from the patient's mental illness and the failure to treat the patient at the partial hospital level of care would likely result in the patient requiring inpatient psychiatric care which could not be prevented at a less intensive level of care. Total time managing care of this patient today ____ minutes. Discharge Plan Discharge Attending provider: Anthony Taylor Additional Instructions: New PCP appointment at [facility]. [address] [place] [address]. [id number]. Office # [phone]. On Sunday February 05, 2023 at 10:30 am with Merced Terrell NP. Medications: New bupropion HCl [Wellbutrin SR] 150 mg tablet sustained-release 12 hr 150 mg PO DAILY Qty: 7 0RF Continued escitalopram oxalate 10 mg Tablet 10 mg PO DAILY 30 Days Qty: 30 1RF bupropion HCl 150 mg Tablet Extended Release 24 Hr 150 mg PO DAILY 30 Days Qty: 30 1RF No Action quetiapine 25 mg Tablet 25 mg PO BID PRN (Reason: anxiety/insomnia) 30 Days Qty: 60 0RF Stand Alone Forms: Patient Portal Discharge page Patient Education: Depression (DC)
--- NOTE | 2022-11-23 13:44 | PC.NURSE ---
New PCP appointment at [facility]. [address] [place] [address]. [id number]. Office # [phone]. On Sunday February 05, 2023 at 10:30 am with Merced Terrell NP.
== END 2022-11-23 23:59 | disposition home or self-care (01) ==
LOC: HO.PHPA 13:00
PROVIDERS: Visit Provider Psychiatry & Neurology Psychiatry
DX: F32.2 Major depressive disorder, single episode, severe without psychotic features (principal); F43.10 Post-traumatic stress disorder, unspecified; F41.9 Anxiety disorder, unspecified; Z79.899 Other long term (current) drug therapy
CPT/HCPCS: 90791; 90853

== ENCOUNTER 2023-02-05 10:32 | Outpatient (AMB) | payer BC, SELFPAY ==
--- NOTE | 2023-02-05 10:37 | A.OFFPC_ITS ---
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 Transferring care from Dr Lc Willett ([facility]). Medical records have not been requested and have not received. Solar Lab Technician Required: No Heel Curver: Not Required per policy Accompanied by: Self / Same As Patient Allergies peanut Adverse Reaction (Verified 02/05/23 11:02) Swelling tree nut Adverse Reaction (Verified 02/05/23 11:02) Rash Medication List - Last Reconciled 02/05/23 by MARY LOU Gonzalez albuterol 90 mcg/actuation 90 mcg inhalation .6hr PRN bupropion HCl (Wellbutrin SR) 150 mg PO DAILY escitalopram oxalate 10 mg PO DAILY 30 days quetiapine 25 mg PO BID PRN 30 days risankizumab-rzaa (Skyrizi) 150 mg subcut Q12W Tobacco use date assessed: 02/05/23 Dental Screening Dental Screen Date: 02/05/23 Did you have a dental visit in the last 12 months?: No Did you have a dental problem in the last 6 months where you did not have access to dental care?: No Was dental information given to patient?: No HPI HPI Comments History of Present Illness Details 23 year old new patient presents today for physical exam. Past medical history significant for psoriasis, currently on Skyrizi follows with [facility] and completes annual blood work with them. Patient reports he currently follows with a therapist weekly and he also has medication prescriber for his history of anxiety and depression currently on Wellbutrin, Lexapro in quetiapine b.i.d. as needed. 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 Order entered. Patient also reports history of asthma has albuterol as needed but states he has not required using an inhaler in years Lc mcleanphyllis ortiz. last seen 1 year ago. Eye exam up-to-date. Flu shot given in office today, will request records on last Tdap. [facility] Medical History (Updated 02/05/23 @ 11:00 by MARY LOU Gonzalez) Psoriasis Surgical History No pertinent past surgical history Family History (Updated 02/05/23 @ 11:01 by MARY LOU Gonzalez) Father Myocardial infarction Mother No problems noted. 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 1. Little interest or pleasure in doing things: not at all 2. Feeling down, depressed, or hopeless: not at all 3. Trouble falling or staying asleep, or sleeping too much: not at all 4. Feeling tired or having little energy: not at all 5. Poor appetite or overeating: not at all 6. Feeling bad about yourself - or that you are a failure or have let yourself or your family down: not at all 7. Trouble concentrating on things, such as reading the newspaper or watching television: not at all 8. Moving or speaking so slowly that other people could have noticed. Or the opposite - being so fidgety or restless that you have been moving around a lot more than usual: not at all 9. Thoughts that you would be better off or of hurting yourself in some way: not at all Total score: 0 Depression Screening Interpretation: Negative Depression Screening Done: Yes Source: Developed by Drs. Bradly Farooq, Mirella Rojas, Pepe Garcia and colleagues, with an educational samuel from [employer]. Thrive Questionnaire Date Thrive assessed: 02/05/23 I am a: Patient What is your living situation today?: I have a steady place to live Within the past 12 months, did the food you bought not last and you didn't have the money to get more?: Never true Within the past 12 months, did you worry whether your food would run out before you got money to buy more?: Never true Do you have trouble paying for medicines?: No Do you have trouble getting transportation to medical appointments?: No Do you have trouble paying your heating and electricity bill?: No Do you have trouble taking care of your child, family member or friend?: No Do you have trouble with day-to-day activities such as bathing, preparing meals, shopping, managing finances, etc.?: No Are you currently unemployed and looking for a job?: No Are you interested in more education?: No Currently or been in a relationship where the following occur: no concerns reported AUDIT C Alcohol Use Questionnaire (AUDIT-C) 1. How often do you have a drink containing alcohol?: Never Total Score: 0 NEMO-7 AMB Questionnaire NEMO-7 Date NEMO - 7 assessed: 02/05/23 Feeling nervous, anxious, or on edge: 1 = Several days Not being able to stop or control worryin = Several days Worrying too much about different things: 1 = Several days Trouble relaxin = Several days Being so restless that it is hard to sit still: 0 = Not at all Becoming easily annoyed or irritable: 2 = More than half the days Feeling afraid as if something awful might happen: 0 = Not at all Total NEMO-7 score (0-4 normal; 5-9 mild; 10-14 moderate; 15-21 severe): 6 Source: Developed by Drs. Bradly Farooq, Mirella Rojas, Pepe Garcia and colleagues, with an educational samuel from [employer]. NEMO-7 Assessment Billing NEMO-7 Assessment Tool: NEMO-7 Assessment 48988 Review of Systems Denies testicular mass and Denies testicular pain Physical exam (Primary Care) Vital Signs: Last Vital Signs Pulse 63 02/05/23 10:40 BP 120/72 02/05/23 10:40 Pulse Ox 95 02/05/23 10:40 Oxygen Delivery Method Room Air 02/05/23 10:40 BMI result Body Mass Index 29.7 Tobacco/Smoking Status: Tobacco use Status Tobacco use date assessed 02/05/23 02/05/23 10:52 Patient Tobacco Use Status Never used Tobacco 02/05/23 11:01 e-Cigarette/Vaping Use Never Used 02/05/23 11:01 PHQ-9: PHQ-9 Score PHQ-9: Total score 0 02/05/23 12:20 Depression Screening Interpretation: Negative Thrive Assessment: Date of Thrive Assessment Date Thrive assessed 02/05/23 02/05/23 10:52 Currently or been in a relationship where the following occur: no concerns reported Const General: cooperative and no acute distress Orientation/consciousness: patient oriented x3 HENAK Head: Yes normocephalic and Yes atraumatic Eyes Conjunctivae: conjunctivae normal Chest Chest palpation & inspection: normal inspection of the chest Resp Effort & Inspection: normal respiratory effort Auscultation: clear to auscultation bilaterally, no crackles, no rhonchi and no wheezes Cardio Rate: regular rate Rhythm: regular rhythm Heart sounds: S1 normal heart sound present and S2 normal heart sound present GI Inspection: Yes normal to inspection Neuro General: patient oriented x3 Extrem General: No edema Office Procedures Flu Questionnaire Does the patient have a severe egg allergy?: No Does the patient have severe life threatening allergies?: No Does the patient have a fever or illness today?: No Has the patient ever had Guillain-[place] Syndrome?: No Has the patient ever had any past reaction to a flu shot?: No Immunizations flu vacc [id number] 6mos up(PF) 60 mcg(15 mcgx4)/0.5 mL IM syringe Performing Provider: MARY LOU Gonzalez Performing Location: [facility] Administered by: PREFECTO Ragland on 02/05/23 11:21 Dose Route Admin Location Dispensed Lot Number Expiration Date NDC Process Mold Technician 0.5 mL IM Left Deltoid 0.5 mL [id number] 09/08/23 01880-060-58 [employer] VIS Given Date VIS Provided VIS Publication Date 02/05/23 Single Vaccine 20 Eligibility Eligibility Date Funding Source Not [facility] Eligible 02/05/23 Private Assessment and Plan Assessment & Plan (1) Anxiety: Code(s): F41.9 - Anxiety disorder, unspecified Plan: Continue to follow with therapist and medication prescriber. Continue on current medications. (2) Asthma: Code(s): J45.909 - Unspecified asthma, uncomplicated Plan: Continue to use albuterol as needed. (3) Major depressive disorder, severe: Code(s): F32.2 - Major depressive disorder, single episode, severe without psychotic features Plan: Continue to follow with therapist and medication provider. Continue on Wellbutrin. (4) Physical exam, annual: Code(s): Z00.00 - Encounter for general adult medical examination without abnormal findings Plan Follow-up in 1 year for annual physical exam or sooner if needed. Orders: Orders Influenza [id number] Immunization Today Z23 - Encounter for immunization Medications: New epinephrine (EpiPen 2-Mario) 0.3 mg (0.3 mL) IM Q4H PRN 2 ea 0RF anaphylaxis T78.05XA - Anaphylactic reaction due to tree nuts and seeds, initial encounter Coding Level of Care Code New Pt Prev Care 18-39yr(57043 Diagnoses Anxiety F41.9 Asthma J45.909 Major depressive disorder, severe F32.2 Physical exam, annual Z00.00 Additional Codes NEMO-7 Assessment Billing - NEMO-7 Assessment Tool: NEMO-7 Assessment 44346 ([id number])
[2023-02-05 10:40] VITALS: BP 120/72; PULSE 63; O2SAT 95; BMI 29.7
== END 2023-02-05 11:18 | disposition home or self-care (01) ==
PROVIDERS: PCP Nurse Practitioner Family; Visit Provider Nurse Practitioner Family
DX: Z00.00 Encounter for general adult medical examination without abnormal findings (principal); F32.2 Major depressive disorder, single episode, severe without psychotic features; J45.909 Unspecified asthma, uncomplicated; Z23 Encounter for immunization; F41.9 Anxiety disorder, unspecified
CPT/HCPCS: 90471; 90686; 99385